=== PATIENT | male | born 1985 | race African-American/Black ===

== ENCOUNTER 2019-05-18 03:34 | Emergency (ER) | payer SELFPAY ==
[2019-05-18] MEDS ORDERED: LIDOCAINE 1%/EPINEPHRINE INJ 20 ML VIAL INJ ONE (03:41)
[2019-05-18] MEDS ORDERED: CEPHALEXIN 500 MG CAPSULE PO ONE (04:46)
[2019-05-18] MEDS ORDERED: HYDROCODONE/ACETAMINOPHEN 5-325 MG (6 TAB/ER DISP) PO PRN (04:46)
[2019-05-18] MEDS ORDERED: DIPH/PERTUSS(ACELL)/TETANUS VAC/PF 0.5 ML SYR (>=10YO) IM ONE (04:46)
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
[2019-05-18 05:31] VITALS: BP 142/89
== END 2019-05-18 05:29 | disposition home or self-care (01) ==
LOC: ER 03:34
DX: S41.112A Laceration without foreign body of left upper arm, initial encounter (principal); X99.1XXA Assault by knife, initial encounter; Z23 Encounter for immunization
CPT/HCPCS: 90471; 90715; 99282

== ENCOUNTER 2019-05-25 14:52 | Emergency (ER) | payer SELFPAY ==
[2019-05-25 15:24] VITALS: BP 121/65
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
== END 2019-05-25 15:30 | disposition home or self-care (01) ==
LOC: ER 14:52
DX: S51.812D Laceration without foreign body of left forearm, subsequent encounter (principal); W26.9XXD Contact with unspecified sharp object(s), subsequent encounter

== ENCOUNTER 2019-12-10 17:59 | Emergency (ER) | payer SELFPAY ==
[2019-12-10] MEDS ORDERED: KETOROLAC TROMETHAMINE INJ/PF 30 MG/1 ML SDV IV ONE (18:17)
[2019-12-10] MEDS ORDERED: ONDANSETRON HCL INJ/PF 4 MG/2 ML SDV IV ONE (18:17)
--- NOTE | 2019-12-10 18:19 | ER Document Report ---
ED Medical Screen (RME) - General Chief Complaint: Abdominal Pain Stated Complaint: ABDOMINAL PAIN Time Seen by Provider: 12/10/19 18:16 Mode of Arrival: Wheelchair Information source: Patient Notes: Patient presents with left lower quadrant tenderness that radiates to the left flank area that started suddenly this evening. Patient reports dark-colored urine. Patient complains of nausea and vomiting times several episodes. I have greeted and performed a rapid initial assessment of this patient. A comprehensive ED assessment and evaluation of the patient, analysis of test results and completion of the medical decision making process will be conducted by additional ED providers. TRAVEL OUTSIDE OF THE [place] IN LAST 30 DAYS: No - Related Data Allergies/Adverse Reactions: No Known Allergies Allergy (Verified 05/25/19 14:54) Past Medical History Renal/ Medical History: Denies: Hx Peritoneal Dialysis Physical Exam - Vital signs Vitals: Temp Pulse Resp BP Pulse Ox 98.8 F 66 20 153/96 H 100 12/10/19 18:02 12/10/19 18:02 12/10/19 18:02 12/10/19 18:02 12/10/19 18:02 - Abdominal Tenderness: Tender - LLQ - Back Back: CVA tenderness - left Course - Vital Signs Vital signs: Temp Pulse Resp BP Pulse Ox 98.8 F 66 20 153/96 H 100 12/10/19 18:02 12/10/19 18:02 12/10/19 18:02 12/10/19 18:02 12/10/19 18:02
--- NOTE | 2019-12-10 18:46 | RADIOLOGY REPORT (SQ) ---
EXAM DESCRIPTION: CT ABD/PELVIS NO ORAL OR IV COMPLETED DATE/TIME: 12/10/2019 6:32 pm REASON FOR STUDY: L flank, LLQ pain COMPARISON: None. TECHNIQUE: CT scan of the abdomen and pelvis performed without intravenous or oral contrast. Images reviewed with lung, soft tissue, and bone windows. Reconstructed coronal and sagittal MPR images revi ewed. All images stored on PACS. All CT scanners at this facility use dose modulation, iterative reconstruction, and/or weight based d osing when appropriate to reduce radiation dose to as low as reasonably achievable (ALARA). [facility]: Dose Right [facility]: CareDose [facility]: Dose Right [facility]: Teradose 4D [facility]: Mobilinga RADIATION DOSE: CT Rad equipment meets quality standard of care and radiation dose reduction techniq ues were employed. CTDIvol: 8.0 mGy. DLP: 468 mGy-cm.mGy. LIMITATIONS: None. FINDINGS: LOWER CHEST: No significant findings. No nodules or infiltrates. NON-CONTRASTED LIVER, SPLEEN, ADRENALS: Evaluation limited by lack of IV contrast. No identified sign ificant masses. PANCREAS: No masses. No peripancreatic inflammatory changes. GALLBLADDER: No identified stones by CT criteria. No inflammatory changes to suggest cholecystitis. RIGHT KIDNEY AND URETER: No suspicious masses. Assessment limited by lack of IV contrast. No signif icant calcifications. No hydronephrosis or hydroureter. LEFT KIDNEY AND URETER: No suspicious masses. Assessment limited by lack of IV contrast. There is a 2 mm calculus at the left UVJ. Mild left hydronephrosis. AORTA AND RETROPERITONEUM: No aneurysm. No retroperitoneal masses or adenopathy. BOWEL AND PERITONEAL CAVITY: No obvious mass. There is questionable wall thickening throughout the c olon versus mere nondistention. APPENDIX: Normal. PELVIS, BLADDER, AND ABDOMINAL WALL:No abnormal masses. No free fluid. Bladder normal. BONES: No significant findings. OTHER: No other significant finding. IMPRESSION: 1. Mild left hydronephrosis secondary to the presence of a 2 mm calculus at the left UV J. 2. Wall thickening versus mere nondistention in the colon. Correlate for a history of inflammatory bowel disease. COMMENT: Quality ID # [id number]: Final reports with documentation of one or more dose reduction techniques (e.g., Automated exposure control, adjustment of the mA and/or kV according to patient size, use of iterative reconstruction technique) TECHNICAL DOCUMENTATION: JOB ID: [id number] 2010 [employer]- All Rights Reserved Reading location - IP/workstation name: [email or web address]
[2019-12-10 18:56] LABS: ABSOLUTE EOSINOPHILS # (AUTO) 0.2 10^3/uL (0.0-0.6); ABSOLUTE LYMPHOCYTES (AUTO) 1.6 10^3/uL (0.5-4.7); ABSOLUTE MONOCYTES (AUTO) 0.8 10^3/uL (0.1-1.4); ABSOLUTE NEUT (AUTO) 9.1 10^3/uL (1.7-8.2); BASOPHILS % (AUTO) 0.4 % (0-2); EOSINOPHILS % (AUTO) 1.9 % (0-6); HEMATOCRIT 41.7 % (37.9-51.0); HEMOGLOBIN 14.4 g/dL (13.5-17.0); LYMPHOCYTES % (AUTO) 13.7 % (13-45); MEAN CORPUSCULAR HEMOGLOBIN 30.8 pg (27.0-33.4); MEAN CORPUSCULAR HGB CONC 34.4 g/dL (32.0-36.0); MEAN CORPUSCULAR VOLUME 89 fl (80-97); MONOCYTES % (AUTO) 6.6 % (3-13); PLATELET COUNT 269 10^3/uL (150-450); RED BLOOD COUNT 4.67 10^6/uL (4.35-5.55); RED CELL DISTRIBUTION WIDTH 13.7 % (11.5-14.0); SEGMENTED NEUTROPHILS % (AUTO) 77.4 % (42-78); TOTAL CELLS COUNTED % (AUTO) 100 %; WHITE BLOOD COUNT 11.7 10^3/uL (4.0-10.5)
[2019-12-10 19:18] LABS: ALBUMIN 4.4 g/dL (3.5-5.0); ALKALINE PHOSPHATASE 66 U/L (38-126); ANION GAP 10 (5-19); ASPARTATE AMINO TRANSFERASE 28 U/L (17-59); BILIRUBIN,DIRECT 0.3 mg/dL (0.0-0.4); BILIRUBIN,TOTAL 0.5 mg/dL (0.2-1.3); BLOOD UREA NITROGEN 17 mg/dL (7-20); CALCIUM 9.6 mg/dL (8.4-10.2); CARBON DIOXIDE 26 mmol/L (22-30); CHLORIDE 103 mmol/L (98-107); GLUCOSE 141 mg/dL (75-110); POTASSIUM 3.9 mmol/L (3.6-5.0); TOTAL PROTEIN 8.2 g/dL (6.3-8.2)
[2019-12-10 23:18] LABS: APPEARANCE,URINE SLIGHTLY-CLOUDY; BILIRUBIN,URINE NEGATIVE (NEGATIVE); COLOR,URINE YELLOW; GLUCOSE, URINE NEGATIVE (NEGATIVE); KETONES,URINE NEGATIVE (NEGATIVE); LEUKOCYTE ESTERASE,URINE SMALL (NEGATIVE); NITRITE,URINE NEGATIVE (NEGATIVE); PROTEIN,URINE 30 mg/dL (NEGATIVE); URINE SPECIFIC GRAVITY 1.019; UROBILINOGEN,URINE NEGATIVE mg/dL (<2.0)
[2019-12-11 00:30] VITALS: BP 129/79
[2019-12-11] MEDS ORDERED: ONDANSETRON HCL INJ/PF 4 MG/2 ML SDV IV ONE (00:32)
[2019-12-11] MEDS: MORPHINE SULFATE 10 MG/ML INJ IV PRN ×2 (00:47→02:59)
[2019-12-11] MEDS ORDERED: NORMAL SALINE 1000 ML 1,000 ML IV ONE (01:39)
[2019-12-11] MEDS ORDERED: CEFTRIAXONE 1 GM/D5W RTU 1 G/50 ML RTUPB IV ONE (02:00)
[2019-12-11] MEDS ORDERED: ONDANSETRON ODT 4 MG TAB (6 TAB/ER DISP) PO PRN (02:39)
[2019-12-11] MEDS ORDERED: HYDROCODONE/ACETAMINOPHEN 5-325 MG (6 TAB/ER DISP) PO PRN (02:39)
--- NOTE | 2019-12-11 02:39 | ER Document Report ---
HPI - HPI Time Seen by Provider: 12/10/19 18:16 Pain Level: 0 Notes: Patient presents with left lower quadrant tenderness that radiates to the left flank area that started suddenly this evening. Patient reports dark-colored urine. Patient complains of nausea and vomiting times several episodes. Past Medical History - General Information source: Patient - Social History Smoking Status: Never Smoker Frequency of alcohol use: None Drug Abuse: None Family History: Reviewed & Not Pertinent - Medical History Medical History: Negative Renal/ Medical History: Denies: Hx Peritoneal Dialysis Surgical Hx: Negative Vertical Provider Document - CONSTITUTIONAL Notes: PHYSICAL EXAMINATION: GENERAL: Well-appearing, well-nourished and in no acute distress. HEAD: Atraumatic, normocephalic. EYES: Pupils equal round and reactive to light, extraocular movements intact, sclera anicteric, conjunctiva are normal. ENT: Nares patent, oropharynx clear without exudates. Moist mucous membranes. NECK: Normal range of motion, supple without lymphadenopathy LUNGS: Breath sounds clear to auscultation bilaterally and equal. No wheezes rales or rhonchi. HEART: Regular rate and rhythm without murmurs ABDOMEN: Soft, nontender, nondistended abdomen. No guarding, no rebound. No masses appreciated. Musculoskeletal: Normal range of motion, no pitting or edema. No cyanosis. NEUROLOGICAL: Cranial nerves grossly intact. Normal speech, normal gait. Normal sensory, motor exams PSYCH: Normal mood, normal affect. SKIN: Warm, Dry, normal turgor, no rashes or lesions noted. - INFECTION CONTROL TRAVEL OUTSIDE OF THE [place] IN LAST 30 DAYS: No Course - Re-evaluation Re-evalutation: Patient appears well, nontoxic, labs as recorded below. Patient does have a 2 mm stone at the UVJ. This is likely the cause of his pain. Patient also has what appears to be a urinary tract infection on urinalysis. Will add on chlamydia and gonorrhea testing. Patient will be discharged home in stable condition at this time on antibiotics. Laboratory 12/10/19 12/10/19 12/10/19 18:45 18:45 22:57 WBC 11.7 H RBC 4.67 Hgb 14.4 Hct 41.7 MCV 89 MCH 30.8 MCHC 34.4 RDW 13.7 Plt Count 269 Lymph % (Auto) 13.7 [place] % (Auto) 6.6 Eos % (Auto) 1.9 Baso % (Auto) 0.4 Absolute Neuts (auto) 9.1 H Absolute Lymphs (auto) 1.6 Absolute Monos (auto) 0.8 Absolute Eos (auto) 0.2 Absolute Basos (auto) 0.0 Seg Neutrophils % 77.4 Sodium 138.7 Potassium 3.9 Chloride 103 Carbon Dioxide 26 Anion Gap 10 BUN 17 Creatinine 1.23 Est GFR ( Amer) > 60 Est GFR (MDRD) Non-Af > 60 Glucose 141 H Calcium 9.6 Total Bilirubin 0.5 Direct Bilirubin 0.3 Neonat Total Bilirubin Not Reportable Neonat Direct Bilirubin Not Reportable Neonat Indirect Bili Not Reportable AST 28 ALT 27 Alkaline Phosphatase 66 Total Protein 8.2 Albumin 4.4 Urine Color YELLOW Urine Appearance SLIGHTLY-CLOUDY Urine pH 7.0 Ur Specific [place] 1.019 Urine Protein 30 H Urine Glucose (UA) NEGATIVE Urine Ketones NEGATIVE Urine Blood LARGE H Urine Nitrite NEGATIVE Urine Bilirubin NEGATIVE Urine Urobilinogen NEGATIVE Ur Leukocyte Esterase SMALL H Urine WBC (Auto) 30 Urine RBC (Auto) >182 U Hyaline Cast (Auto) 1 Squamous Epi Cells Auto <1 Urine Mucus (Auto) MOD Urine Ascorbic Acid NEGATIVE Chlamydia DNA (PCR) N.gonorrhoeae DNA (PCR) 12/11/19 02:00 WBC RBC Hgb Hct MCV MCH MCHC RDW Plt Count Lymph % (Auto) [place] % (Auto) Eos % (Auto) Baso % (Auto) Absolute Neuts (auto) Absolute Lymphs (auto) Absolute Monos (auto) Absolute Eos (auto) Absolute Basos (auto) Seg Neutrophils % Sodium Potassium Chloride Carbon Dioxide Anion Gap BUN Creatinine Est GFR ( Amer) Est GFR (MDRD) Non-Af Glucose Calcium Total Bilirubin Direct Bilirubin Neonat Total Bilirubin Neonat Direct Bilirubin Neonat Indirect Bili AST ALT Alkaline Phosphatase Total Protein Albumin Urine Color Urine Appearance Urine pH Ur Specific [place] Urine Protein Urine Glucose (UA) Urine Ketones Urine Blood Urine Nitrite Urine Bilirubin Urine Urobilinogen Ur Leukocyte Esterase Urine WBC (Auto) Urine RBC (Auto) U Hyaline Cast (Auto) Squamous Epi Cells Auto Urine Mucus (Auto) Urine Ascorbic Acid Chlamydia DNA (PCR) DETECTED H N.gonorrhoeae DNA (PCR) NOT DETECTED Abdomen/Pelvis CT 12/10/19 18:17 IMPRESSION: 1. Mild left hydronephrosis secondary to the presence of a 2 mm calculus at the left UVJ. 2. Wall thickening versus mere nondistention in the colon. Correlate for a history of inflammatory bowel disease. - Vital Signs Vital signs: Temp Pulse Resp BP Pulse Ox 98.7 F 74 20 129/79 H 99 12/11/19 00:26 12/11/19 00:26 12/11/19 00:26 12/11/19 00:26 12/11/19 00:26 - Laboratory Result Diagrams: 12/10/19 18:45 12/10/19 18:45 Laboratory results interpreted by me: 12/10/19 12/10/19 12/10/19 18:45 18:45 22:57 WBC 11.7 H Absolute Neuts (auto) 9.1 H Glucose 141 H Urine Protein 30 H Urine Blood LARGE H Ur Leukocyte Esterase SMALL H Discharge - Discharge Clinical Impression: Kidney stone Urinary tract infection Qualifiers: Urinary tract infection type: site unspecified Hematuria presence: with hematuria Qualified Code(s): N39.0 - Urinary tract infection, site not specified Condition: Stable Disposition: HOME, SELF-CARE Additional Instructions: Your symptoms should improve over the course of the next one week. If you continue to have pain for greater than one week or your pain is not controlled with the pain medications that you have been sent home with you need to return to the emergency department. Please also return if you develop fever, persistent vomiting, or any other symptoms that are concerning to you. You should take ibuprofen 600 mg every 6 hours and use the hydrocodone that was sent home with you only for pain not controlled by ibuprofen. You are also been sent home with a medication called Flomax to help pass the stone. You've been given Zofran to assist with nausea. Prescriptions: Tamsulosin HCl [Flomax] 0.4 mg PO DAILY #7 capsule Cephalexin [Keflex] 500 mg PO BID #14 capsule Referrals: TASHI SOUTH MD [NO LOCAL MD] - Follow up as needed
[2019-12-11] MEDS ORDERED: TAMSULOSIN HCL 0.4 MG CAP.SR.24H PO ONE (02:40)
[2019-12-11 04:22] LABS: CHLAM PCR DETECTED (NOT DETECT)
== END 2019-12-11 03:15 | disposition home or self-care (01) ==
LOC: ER 17:59
DX: N13.2 Hydronephrosis with renal and ureteral calculous obstruction (principal); N39.0 Urinary tract infection, site not specified; R31.9 Hematuria, unspecified; R11.2 Nausea with vomiting, unspecified
CPT/HCPCS: 99284; 96375; 96365; 36415; 85025; 80053; 81001; 87491; 87591; 74176; J1885; J2270; J2405 ×2; J7030; J0696